=== PATIENT | female | born 1965 | race Caucasian/White ===

== ENCOUNTER 2024-02-03 09:36 | Emergency (ER) | payer OTHER, SELFPAY ==
[2024-02-03 09:52] VITALS: BP 176/88
[2024-02-03 10:19] VITALS: BMI 34.1
--- NOTE | 2024-02-03 10:47 | ED.GENMED ---
History of Present Illness
General
Chief Complaint: Cold/Flu/URI Symptoms
Time Seen by Provider: 02/03/24 10:26
History of Present Illness
History of Present Illness:
58-year-old female presents to the emergency department for evaluation of persistent cough and intermittent fever for the past 5 days, was seen in urgent care 3 days ago and started on Augmentin. She reports that her symptoms are worsening and now
she has wheezing. No history of COPD or asthma. Former smoker. No ill contacts at home. No chest pain or leg swelling
Past History
Past History
ED Past Medical History: None
ED Past Surgical History: Cholecystectomy
Social History
Personal:
Living: with family
Review of Systems
Review of Systems
Allergies reviewed?: Yes
All Other Systems: ROS reviewed and negative except as documented in HPI and ROS
Phy Exam
Physical Exam
Physical Exam:
GEN: Well appearing, NAD, WDWN
HEENT: Oral mucosa moist, no scleral icterus
Cardiac: Regular rate and rhythm, no murmurs
Lung: No respiratory distress, no tachypnea, prominent expiratory wheezes heard throughout all lung hoover, cleared to some degree with coughing
MSK: No gross deformity or injuries
Skin: Good color, no pallor or jaundice, no rashes
Neuro: AO x3, moves all extremities freely
Psych: Calm, cooperative
Course
Orders/Labs/Results
Orders:
Orders
02/03/24 10:21
CXR2 [CR Chest - 2 Views ] Urgent
Comment:
Reason For Exam: cough
02/03/24 10:25
Influenza A+B Rapid Molecular Urgent
[facility]IL[facility]ERT Source: Nasal Swab
Specimen Description:
02/03/24 10:47
Ipratropium/Albuterol Sulfate [Duoneb] 3 ml INH R NOW ONE
02/03/24 12:18
Prednisone [Deltasone] 40 mg PO NOW STA
Vital Signs
Initial and Last Documented VS:
Initial Vital Signs
Temp Pulse Resp BP Pulse Ox
98.0 F 97 16 176/88 98
02/03/24 09:52 02/03/24 09:52 02/03/24 09:52 02/03/24 09:52 02/03/24 09:52
Last Documented Vital Signs
Temp Pulse Resp BP Pulse Ox
98.0 F 89 18 153/85 95
02/03/24 09:52 02/03/24 11:30 02/03/24 11:30 02/03/24 11:04 02/03/24 11:30
MDM/Problems Addressed
MDM/Problems Addressed:
Chest x-ray shows no acute infiltrates. Post nebulizer lung auscultation reveals bibasilar crackles. Suspicious for potential mycoplasma versus viral bronchitis. Will add azithromycin, continue Augmentin, and add corticosteroid plus
bronchodilators. Work of breathing is normal she is not hypoxic thus there is no indication for inpatient management
*Critical Care Note
Total Time (30-74mins, 75-104mins- exclusive of procedures): Not Applicable
ED Attending Note
-
Portions of this chart may have been created with voice recognition software.� Occasional wrong word or��sound alike� substitutions may have occurred due to the inherent limitations of voice recognition software.
Discharge Plan
Departure
Patient Disposition: Home (Routine Discharge)
Date of Disposition: 02/03/24
Time of Disposition: 12:19
Patient with high blood pressure during this ER visit?: No
Discharge Problem:
Bronchitis
Instructions: Acute Bronchitis, Adult (DC)
Prescriptions:
New
azithromycin [Zithromax] 250 mg tablet
250 mg PO DAILY Qty: 6 0RF
Rx Instructions:
500mg PO on day 1 then 250mg PO qd x 4d
albuterol sulfate 90 mcg/actuation HFA aerosol inhaler
2 puff inhalation Q6H PRN (Reason: shortness of breath or wheezing) Qty: 6.7 0RF
prednisone 20 mg tablet
40 mg PO DAILY 5 Days Qty: 10 0RF
No Action
alprazolam 0.5 MG tablet
0.5 mg PO Q6HPRN PRN (Reason: anxiety)
fluoxetine 10 MG capsule
10 mg PO DAILY
[place] 3 Ethyl Esters
1 g PO DAILY
oxycodone-acetaminophen 5 MG/325 MG tablet
1 tab PO Q4HPRN PRN (Reason: moderate to severe pain) Qty: 5 0RF
meclizine 25 MG tablet
25 mg PO Q8HPRN PRN (Reason: dizziness) Qty: 12 0RF
cyclobenzaprine 10 MG tablet
10 mg PO BIDPRN PRN (Reason: pain) Qty: 10 0RF
hydrocodone-acetaminophen 1 TABLET tablet
1 tab PO Q4HPRN PRN (Reason: pain) Qty: 10 0RF
Interventions
Interventions:
*Risk Screen - Suicide Last Done: 02/03/24 09:52
*General Assessment Last Done: 02/03/24 11:12
*Neglect/Abuse Screening Last Done: 02/03/24 09:52
ED- Fall Risk Assessment Last Done: 02/03/24 11:13
*ED COVID-19 Vaccine History Last Done: 02/03/24 11:12
*Nursing Disposition Last Done: 02/03/24 12:30
ED- Pulmonary Assessment Last Done: 02/03/24 10:19
Discharge Date and Time
Discharge Date/Time: 02/03/24 12:40
Print Language: MALAY
[2024-02-03 11:04] VITALS: BP 153/85
[2024-02-03] MEDS: DUONEB 3 ML INH (11:09)
[2024-02-03] MEDS: DELTASONE 40 MG PO (12:26)
== END 2024-02-03 12:40 | disposition home or self-care (01) ==
LOC: EMR 09:36
PROVIDERS: EMERGENCY PHYSICIAN Emergency Medicine; FAMILY PHYSICIAN Family Medicine
DX: J20.9 Acute bronchitis, unspecified (principal); Z87.891 Personal history of nicotine dependence; Z90.49 Acquired absence of other specified parts of digestive tract
CPT/HCPCS: 94640; 99284; 71046; 87502

== ENCOUNTER 2025-03-24 06:30 | Day surgery (SDC) | payer OTHER, SELFPAY | END 2025-03-24 13:46 | disposition home or self-care (01) | LOC: GI 06:30 | PROVIDERS: ATTENDING PHYSICIAN Internal Medicine | DX: R19.4 Change in bowel habit (principal); K64.9 Unspecified hemorrhoids; R13.10 Dysphagia, unspecified; R12 Heartburn; R14.0 Abdominal distension (gaseous); K44.9 Diaphragmatic hernia without obstruction or gangrene; K21.00 Gastro-esophageal reflux disease with esophagitis, without bleeding; K31.89 Other diseases of stomach and duodenum; D12.2 Benign neoplasm of ascending colon; K29.50 Unspecified chronic gastritis without bleeding; R89.7 Abnormal histological findings in specimens from other organs, systems and tissues | CPT/HCPCS: 45385; 43239; 88305; 88342 ==